=== PATIENT | female | born 1990 | race Two or more races ===

== ENCOUNTER 2021-04-09 19:23 | Emergency (ER) | payer OTHER ==
[2021-04-09 19:39] VITALS: BP 105/79; PULSE 100; TEMP 97.9; BMI 29.2
[2021-04-09 21:09] LABS: HCG,QUALITATIVE URINE Positive
[2021-04-09 21:10] LABS: URINE APPEARANCE CLEAR; URINE BILIRUBIN NEGATIVE (NEGATIVE); URINE COLOR YELLOW; URINE GLUCOSE (UA) NEGATIVE (NEGATIVE); URINE KETONE NEGATIVE (NEGATIVE); URINE LEUK ESTERASE NEGATIVE (NEGATIVE); URINE NITRITE NEGATIVE (NEGATIVE); URINE PROTEIN NEGATIVE (NEGATIVE); URINE UROBILINOGEN 0.2 mg/dL (0.2-1.0)
[2021-04-09] MEDS ORDERED: diphenhydrAMINE HCL 50 MG CAPSULE PO ONE (22:20)
[2021-04-09] MEDS ORDERED: diphenhydrAMINE HCL 25 MG CAPSULE (FP) PO ONE (22:21)
== END 2021-04-10 00:02 | disposition home or self-care (01) ==
LOC: JER 19:23
PROC: 3E033GC Introduction of Other Therapeutic Substance into Peripheral Vein, Percutaneous Approach (ICD-10-PCS; principal; 2021-04-09)
DX: O99.342 Other mental disorders complicating pregnancy, second trimester (principal); Z3A.19 19 weeks gestation of pregnancy
CPT/HCPCS: 76815-TC; 81003; 84703; 87086; 99284-25

== ENCOUNTER 2021-05-05 18:11 | Emergency (ER) | payer OTHER ==
[2021-05-05 18:18] VITALS: BP 110/71; TEMP 97.1; BMI 30.2
[2021-05-05 20:10] VITALS: PULSE 88
== END 2021-05-05 19:55 | disposition home or self-care (01) ==
LOC: JERFT 18:11 → JER 18:11 → JERFT 19:55
DX: O99.342 Other mental disorders complicating pregnancy, second trimester (principal); F41.9 Anxiety disorder, unspecified; Z3A.25 25 weeks gestation of pregnancy
CPT/HCPCS: 99281-25

== ENCOUNTER 2021-05-27 20:45 | Emergency (ER) | payer OTHER ==
[2021-05-27 20:50] VITALS: BMI 31.1
[2021-05-27] MEDS ORDERED: diphenhydrAMINE HCL 25 MG CAPSULE (FP) PO ONE ×2 (23:08→23:11)
[2021-05-28 00:52] VITALS: BP 105/68; PULSE 91; TEMP 98.4
[2021-05-30 14:09] LABS: POC NITRAZINE NEG
== END 2021-05-28 01:27 | disposition left against medical advice (07) ==
LOC: JER 20:45
DX: O99.343 Other mental disorders complicating pregnancy, third trimester (principal); G47.00 Insomnia, unspecified; F32.A Depression, unspecified; Z3A.30 30 weeks gestation of pregnancy
CPT/HCPCS: 83986-QW; 93005; 93010; 99284-25

== ENCOUNTER 2021-06-07 19:40 | Emergency (ER) | payer OTHER ==
[2021-06-07 19:57] VITALS: TEMP 97.9; BMI 31.1
[2021-06-07 23:47] LABS: BASO % 0.4 % (0-2.0); EOS % 2.5 % (0-4.5); HEMOGLOBIN 10.5 GM/dL (10.7-15.3); LYMPH % 25.6 % (8-40); MCHC 33.9 g/dl (32.0-36.0); MEAN CELL VOLUME 76.6 fl (80-96); MEAN PLT VOLUME 8.5 fl (7.5-11.1); MONO % 8.5 % (3.8-10.2); PLATELET COUNT 213 10^3/uL (134-434); RBC 4.05 M/mm3 (3.60-5.2); RDW 16.2 % (11.6-15.6); WHITE BLOOD COUNT 6.4 K/mm3 (4.0-10.0)
[2021-06-08 00:14] LABS: CHLORIDE 108 mmol/L (98-107); SODIUM 137 mmol/L (136-145)
[2021-06-08 00:16] LABS: ANION GAP 9 MMOL/L (8-16); BLOOD UREA NITROGEN 10.1 mg/dL (7-18); CALCIUM 7.8 mg/dL (8.5-10.1); CO2 21 mmol/L (21-32); GLUCOSE,RANDOM 92 mg/dL (74-106)
[2021-06-08 00:17] LABS: ALBUMIN 2.4 g/dl (3.4-5.0)
[2021-06-08 00:19] LABS: SGPT/ALT 18 U/L (13-61)
[2021-06-08 00:20] LABS: CREATININE 0.4 mg/dL (0.55-1.3); SGOT/AST 18 U/L (15-37)
[2021-06-08 00:21] LABS: BILIRUBIN,TOTAL 0.1 mg/dL (0.2-1); TOT PROT 5.9 g/dl (6.4-8.2)
[2021-06-08 00:22] LABS: ALK PHOS 104 U/L (45-117)
[2021-06-08 09:55] LABS: EPI CELLS >36 /uL (0-25.1); HYALINE CASTS 2 /uL (0-3.1); URINE APPEARANCE CLOUDY; URINE BACTERIA 2825 /uL (0-1359); URINE BILIRUBIN NEGATIVE (NEGATIVE); URINE COLOR YELLOW; URINE GLUCOSE (UA) NEGATIVE (NEGATIVE); URINE KETONE NEGATIVE (NEGATIVE); URINE LEUK ESTERASE 1+ (NEGATIVE); URINE NITRITE NEGATIVE (NEGATIVE); URINE PROTEIN NEGATIVE (NEGATIVE); URINE RBC 3 /uL (0-23.9); URINE UROBILINOGEN 0.2 mg/dL (0.2-1.0); URINE WBC 73 /uL (0-25.8)
[2021-06-08 11:13] VITALS: BP 98/54; PULSE 86
== END 2021-06-08 11:15 | disposition home or self-care (01) ==
LOC: JER 19:40
DX: O99.341 Other mental disorders complicating pregnancy, first trimester (principal); Z3A.27 27 weeks gestation of pregnancy
CPT/HCPCS: 36415; 76816-TC; 80053; 80307; 81003; 84436; 84443; 84479; 85025; 99284-25

== ENCOUNTER 2021-08-29 08:44 | Inpatient (IN) | payer OTHER ==
[2021-08-29] MEDS ORDERED: DEXTROSE 5%-LACTATED RINGERS 500 ML IV ONE ×2 (09:45→10:45)
[2021-08-29 11:11] VITALS: TEMP 98; BMI 33.8
[2021-08-29 12:28] VITALS: BP 132/82; PULSE 98
[2021-08-29] MEDS ORDERED: DEXTROSE 5%-LACTATED RINGERS 1,000 ML IV SCH (12:45)
== END 2021-08-29 12:00 | disposition short-term general hospital (02) | DRG 566 ==
LOC: JDEL 08:44 → JLDR 10:00
PROVIDERS: ADMIT Student in an Organized Health Care Education/Training Program; ATTEND Student in an Organized Health Care Education/Training Program
DX: O36.8330 Maternal care for abnormalities of the fetal heart rate or rhythm, third trimester, not applicable or unspecified (principal); O99.343 Other mental disorders complicating pregnancy, third trimester; Z3A.38 38 weeks gestation of pregnancy; F20.9 Schizophrenia, unspecified; F32.9 Major depressive disorder, single episode, unspecified

== ENCOUNTER 2024-05-19 05:33 | Day surgery (SDC) | payer OTHER ==
[2024-05-16 13:08] VITALS: BMI 29.7
[2024-05-19] MEDS ORDERED: IBUPROFEN 400 MG TABLET (FP) PO PRN (06:56)
[2024-05-19] MEDS ORDERED: ACETAMINOPHEN 325 MG TABLET (FP) PO PRN (06:56)
[2024-05-19] MEDS ORDERED: PROPOFOL 20 ML ONE (15:07)
[2024-05-19] MEDS ORDERED: MIDAZOLAM HCL 2 MG/2 ML SINGLE DOSE VIAL ONE (15:08)
[2024-05-19] MEDS ORDERED: LACTATED RINGERS SOLUTION 1,000 ML IV SCH (16:00)
[2024-05-19 17:59] VITALS: RESP 18
[2024-05-19 18:42] VITALS: BP 127/58; PULSE 76; TEMP 97.7
== END 2024-05-19 18:46 | disposition home or self-care (01) ==
LOC: JASU-SURG 05:33
PROVIDERS: ATTEND Obstetrics & Gynecology
PROC: 0UB98ZZ Excision of Uterus, Via Natural or Artificial Opening Endoscopic (ICD-10-PCS; principal; 2024-05-19 14:00)
DX: N84.0 Polyp of corpus uteri (principal); N92.0 Excessive and frequent menstruation with regular cycle
CPT/HCPCS: 86850; 86900; 86901; 88305-TC; 94760